=== PATIENT | female | born 1985 | race Caucasian/White ===

== ENCOUNTER 2016-12-19 12:58 | Emergency (ER) | payer OTHER ==
[~2016-12-19] VITALS: Ht 160 cm; Wt 60.9 kg
[~2016-12-19 12:58] MED LIST: AMOXICILLIN500 MG PO; ATIVAN0.5 MG PO; CIPROFLOXACN500 MG PO; FERR SULFATE325 MG PO; FIORICE1 PO; LEVOTHROID PO; LEVOTHYROXIN75 MCG PO; LORTAB 5/3255 MG PO; PHENERGAN25 MG RE; PRE-NATAL PO; PREVPAC OR; PROMETHAZINE25 MG OR; ULTRAM50 M1 PO; ZOFRAN ODT4 MG PO
[2016-12-19 14:20] LABS: ALBUMIN 3.9 g/dL (3.2-5.0); ALKALINE PHOSPHATASE 66 u/l (38-126); BILIRUBIN, TOTAL 0.5 mg/dL (0.0-1.4); BUN 11 mg/dL (7-17); BUN/CREATININE RATIO 13 (12-20 (CALC)); CALCIUM 9.5 mg/dL (8.4-10.2); CARBON DIOXIDE 29 mmol/l (22-30); CHLORIDE 100 mmol/l (95-108); CREATININE 0.9 mg/dL (0.5-1.0); GFR > 60 ML/MIN (>=60 (CALC)); GFR FOR AFR.AMER. > 60 ML/MIN (>=60 (CALC)); GLUCOSE 87 mg/dL (65-105); POTASSIUM 3.9 mmol/l (3.5-5.1); SGOT/AST 16 u/l (14-36); SGPT/ALT 23 u/l (9-52); TOTAL PROTEIN 7.2 g/dL (6.3-8.2)
[2016-12-19 14:22] LABS: ANION GAP 14 (6-22 (CALC)); HEMATOCRIT 35.4 % (37.0-47.0); HEMOGLOBIN 11.4 g/dl (12.0-16.0); IMMATURE GRANULOCYTES 0.3 % (0.0-1.0); MEAN CORPUSCULAR HGB CONC 32.2 g/L CALC (32.0-36.0); NEUT# 3.66 thou/uL (2.00-7.15); RED BLOOD COUNT 4.07 mill/uL (4.20-5.60); RED CELL DISTRI WIDTH 15.5 % (11.5-15.5); SODIUM 139 mmol/l (137-146)
[2016-12-19] MEDS ORDERED: MOTRIN800 MG PO (15:45)
[2016-12-19 15:54] VITALS: BP 109/64
== END 2016-12-19 15:54 | disposition home or self-care (01) | DRG 552 ==
LOC: ED 12:58
PROVIDERS: Emergency Medicine
DX: M54.5 Low back pain (principal); E03.9 Hypothyroidism, unspecified; S30.810A Abrasion of lower back and pelvis, initial encounter; X58.XXXA Exposure to other specified factors, initial encounter

== ENCOUNTER 2017-02-11 17:07 | Emergency (ER) | payer OTHER ==
[~2017-02-11] VITALS: Ht 160 cm; Wt 60.2 kg
[~2017-02-11 17:07] MED LIST changes: +MOTRIN800 MG PO
[2017-02-11] MEDS ORDERED: AMOXICILLIN500 MG PO (19:00)
[2017-02-11 20:45] VITALS: BP 107/74
== END 2017-02-11 20:48 | disposition home or self-care (01) | DRG 153 ==
LOC: ED 17:07
DX: J02.9 Acute pharyngitis, unspecified (principal)

== ENCOUNTER 2018-06-30 13:35 | Emergency (ER) | payer MEDICAID ==
[~2018-06-30] VITALS: Ht 160 cm; Wt 59.0 kg
[~2018-06-30 13:35] MED LIST changes: +FLEXERIL PO; +TORADOL PO
[2018-06-30 14:44] LABS: URINE BILIRUBIN - DIPSTICK NEGATIVE (NEGATIVE); URINE BLOOD DIPSTICK NEGATIVE (NEGATIVE); URINE COLOR YELLOW; URINE GLUCOSE - DIPSTICK NEGATIVE (NEGATIVE); URINE KETONE NEGATIVE (NEGATIVE); URINE LEUK ESTERASE NEGATIVE (NEGATIVE); URINE NITRITE - DIPSTICK NEGATIVE (Negative); URINE PROTEIN - DIPSTICK TRACE mg/dL (NEG-TRACE); URINE UROBILINOGEN - DIPSTICK 0.2 E.U./dL (0.2)
[2018-06-30 14:45] LABS: URINE CLARITY CLEAR
[2018-06-30 15:18] LABS: HEMOGLOBIN 13.9 g/dl (12.0-16.0); IMMATURE GRANULOCYTES 0.3 % (0.0-5.0); MEAN CELL VOLUME 91.2 fL CALC (80.0-100.0); MEAN CORPUSCULAR HGB 29.7 pG CALC (26.0-32.0); MEAN CORPUSCULAR HGB CONC 32.6 g/L CALC (32.0-36.0); NEUT# 3.51 thou/uL (2.00-7.15); RED BLOOD COUNT 4.68 mill/uL (4.20-5.60); RED CELL DISTRI WIDTH 14.7 % (11.5-15.5)
[2018-06-30 15:23] LABS: HEMATOCRIT 42.7 % (37.0-47.0)
[2018-06-30 15:31] LABS: ALBUMIN 3.9 g/dL (3.2-5.0); ALKALINE PHOSPHATASE 91 u/l (38-126); ANION GAP 12 (6-22 (CALC)); BILIRUBIN, TOTAL 0.9 mg/dL (0.0-1.4); BUN 8 mg/dL (7-17); BUN/CREATININE RATIO 10 (12-20 (CALC)); CARBON DIOXIDE 31 mmol/l (22-30); CHLORIDE 102 mmol/l (95-108); CREATININE 0.8 mg/dL (0.5-1.0); GFR > 60 ML/MIN (>=60 (CALC)); GFR FOR AFR.AMER. > 60 ML/MIN (>=60 (CALC)); LIPASE 118 u/l (23-300); POTASSIUM 4.4 mmol/l (3.5-5.1); SGOT/AST 18 u/l (14-36); SODIUM 140 mmol/l (137-146); TOTAL PROTEIN 7.2 g/dL (6.3-8.2)
[2018-06-30] MEDS ORDERED: PROTONIX40 M2 PO (15:42)
[2018-06-30 16:05] VITALS: BP 103/73
== END 2018-06-30 16:05 | disposition home or self-care (01) ==
LOC: ED 13:35
PROVIDERS: Emergency Medicine
DX: K59.00 Constipation, unspecified (principal); R10.13 Epigastric pain; Z90.49 Acquired absence of other specified parts of digestive tract; R19.7 Diarrhea, unspecified

== ENCOUNTER 2018-11-06 09:01 | Emergency (ER) | payer OTHER ==
[~2018-11-06] VITALS: Ht 160 cm; Wt 59.0 kg
[~2018-11-06 09:01] MED LIST changes: +PROTONIX40 M2 PO
[2018-11-06] MEDS ORDERED: PROVENTIL108 MCG/AC IN (09:49)
[2018-11-06] MEDS ORDERED: ZITHROMAX250 MG PO (09:49)
[2018-11-06] MEDS ORDERED: TORADOL PO (09:49)
[2018-11-06 10:12] VITALS: BP 104/67
== END 2018-11-06 10:15 | disposition home or self-care (01) ==
LOC: ED 09:01
DX: J02.0 Streptococcal pharyngitis (principal); R05 Cough

== ENCOUNTER 2018-11-24 08:51 | Emergency (ER) | payer OTHER ==
[~2018-11-24] VITALS: Ht 160 cm; Wt 59.6 kg
[~2018-11-24 08:51] MED LIST changes: +PROVENTIL108 MCG/AC IN; +ZITHROMAX250 MG PO
[2018-11-24 11:09] LABS: HEMATOCRIT 45.2 % (37.0-47.0); HEMOGLOBIN 14.8 g/dl (12.0-16.0); IMMATURE GRANULOCYTES 0.5 % (0.0-5.0); MEAN CELL VOLUME 91.1 fL CALC (80.0-100.0); MEAN CORPUSCULAR HGB 29.8 pG CALC (26.0-32.0); MEAN CORPUSCULAR HGB CONC 32.7 g/L CALC (32.0-36.0); NEUT# 7.41 thou/uL (2.00-7.15); RED BLOOD COUNT 4.96 mill/uL (4.20-5.60); RED CELL DISTRI WIDTH 14.8 % (11.5-15.5)
[2018-11-24 11:26] LABS: ALBUMIN 4.4 g/dL (3.2-5.0); ALKALINE PHOSPHATASE 123 u/l (38-126); ANION GAP 15 (6-22 (CALC)); BUN 7 mg/dL (7-17); BUN/CREATININE RATIO 9 (12-20 (CALC)); CARBON DIOXIDE 30 mmol/l (22-30); CHLORIDE 99 mmol/l (95-108); CREATININE 0.7 mg/dL (0.5-1.0); GFR > 60 ML/MIN (>=60 (CALC)); GFR FOR AFR.AMER. > 60 ML/MIN (>=60 (CALC)); POTASSIUM 4.3 mmol/l (3.5-5.1); SGOT/AST 18 u/l (14-36); SODIUM 139 mmol/l (137-146); TOTAL PROTEIN 7.7 g/dL (6.3-8.2)
[2018-11-24] MEDS ORDERED: TORADOL PO (12:53)
[2018-11-24] MEDS ORDERED: LEVAQUIN750 MG PO (12:53)
[2018-11-24] MEDS ORDERED: PROVENTIL108 MCG/AC IN (12:53)
[2018-11-24 13:00] VITALS: BP 121/67
== END 2018-11-24 13:00 | disposition home or self-care (01) ==
LOC: ED 08:51
PROVIDERS: Emergency Medicine
DX: J18.9 Pneumonia, unspecified organism (principal); R05 Cough; R09.81 Nasal congestion
CPT/HCPCS: Q9967

== ENCOUNTER 2019-08-17 14:50 | Emergency (ER) | payer SELFPAY ==
[~2019-08-17] VITALS: Ht 160 cm; Wt 58.6 kg
[~2019-08-17 14:50] MED LIST changes: +LEVAQUIN750 MG PO
[2019-08-17] MEDS ORDERED: TAM75CAP PO (17:04)
[2019-08-17 17:30] VITALS: BP 112/64
== END 2019-08-17 17:30 | disposition home or self-care (01) | DRG 866 ==
LOC: ED 14:50
DX: B34.9 Viral infection, unspecified (principal); Z20.828 Contact with and (suspected) exposure to other viral communicable diseases

== ENCOUNTER 2021-08-30 14:25 | Emergency (ER) | payer SELFPAY ==
[~2021-08-30] VITALS: Ht 160 cm; Wt 58.0 kg
[~2021-08-30 14:25] MED LIST changes: +TAM75CAP PO
[2021-08-30] MEDS ORDERED: SYNTHROID25 MCG PO (14:50)
[2021-08-30 16:49] LABS: HEMOGLOBIN 13.3 g/dl (12.0-16.0); IMMATURE GRANULOCYTES 0.2 % (0.0-5.0); MEAN CORPUSCULAR HGB 32.5 pG CALC (26.0-32.0); MEAN CORPUSCULAR HGB CONC 33.3 g/dL CAL (32.0-36.0); NEUT# 7.03 thou/uL (2.00-7.15); RED BLOOD COUNT 4.09 mill/uL (4.20-5.60); RED CELL DISTRI WIDTH 12.9 % (11.5-15.5)
[2021-08-30 16:51] LABS: MEAN CELL VOLUME 97.8 fL CALC (80.0-100.0)
[2021-08-30 17:08] LABS: ALBUMIN 3.6 g/dL (3.2-5.0); ALKALINE PHOSPHATASE 109 u/l (38-126); ANION GAP 10 (6-22 (CALC)); BUN 7 mg/dL (7-17); BUN/CREATININE RATIO 7 (12-20 (CALC)); CARBON DIOXIDE 28 mmol/l (22-30); CHLORIDE 102 mmol/l (95-108); CREATININE 0.9 mg/dL (0.5-1.0); GFR > 60 ML/MIN (>=60 (CALC)); GFR FOR AFR.AMER. > 60 ML/MIN (>=60 (CALC)); POTASSIUM 3.7 mmol/l (3.5-5.1); SGOT/AST 17 u/l (14-36); SODIUM 136 mmol/l (137-146); TOTAL PROTEIN 6.9 g/dL (6.3-8.2)
[2021-08-30 17:09] LABS: BILIRUBIN, TOTAL 0.5 mg/dL (0.0-1.4)
[2021-08-30] MEDS ORDERED: ZPAK PO (19:21)
[2021-08-30 20:16] VITALS: BP 95/56
== END 2021-08-30 20:15 | disposition home or self-care (01) | DRG 195 ==
LOC: ED 14:25
DX: J18.9 Pneumonia, unspecified organism (principal); Z20.822 Contact with and (suspected) exposure to COVID-19
CPT/HCPCS: Q9967

== ENCOUNTER 2021-09-04 16:57 | Emergency (ER) | payer SELFPAY ==
[~2021-09-04] VITALS: Ht 160 cm; Wt 68.0 kg
[~2021-09-04 16:57] MED LIST changes: +SYNTHROID25 MCG PO; +ZPAK PO
[2021-09-04 18:57] LABS: URINE BILIRUBIN - DIPSTICK NEGATIVE (NEGATIVE); URINE BLOOD DIPSTICK NEGATIVE (NEGATIVE); URINE COLOR YELLOW; URINE GLUCOSE - DIPSTICK NEGATIVE (NEGATIVE); URINE KETONE NEGATIVE (NEGATIVE); URINE LEUK ESTERASE NEGATIVE (NEGATIVE); URINE PROTEIN - DIPSTICK NEGATIVE (NEG-TRACE); URINE UROBILINOGEN - DIPSTICK 0.2 E.U./dL (0.2)
[2021-09-04 18:58] LABS: HEMATOCRIT 35.8 % (37.0-47.0); HEMOGLOBIN 11.8 g/dl (12.0-16.0); MEAN CELL VOLUME 99.4 fL CALC (80.0-100.0); MEAN CORPUSCULAR HGB 32.8 pG CALC (26.0-32.0); NEUT# 3.13 thou/uL (2.00-7.15); RED BLOOD COUNT 3.6 mill/uL (4.20-5.60); RED CELL DISTRI WIDTH 13.5 % (11.5-15.5)
[2021-09-04 18:59] LABS: URINE NITRITE - DIPSTICK NEGATIVE (Negative)
[2021-09-04 19:01] LABS: IMMATURE GRANULOCYTES 11.9 % (0.0-5.0)
[2021-09-04 19:17] LABS: ALKALINE PHOSPHATASE 97 u/l (38-126); ANION GAP 6 (6-22 (CALC)); BUN 8 mg/dL (7-17); BUN/CREATININE RATIO 12 (12-20 (CALC)); CARBON DIOXIDE 32 mmol/l (22-30); CHLORIDE 106 mmol/l (95-108); CREATININE 0.6 mg/dL (0.5-1.0); GFR > 60 ML/MIN (>=60 (CALC)); GFR FOR AFR.AMER. > 60 ML/MIN (>=60 (CALC)); POTASSIUM 3.6 mmol/l (3.5-5.1); SODIUM 140 mmol/l (137-146); TOTAL PROTEIN 5.8 g/dL (6.3-8.2)
[2021-09-04 19:18] LABS: ALBUMIN 2.7 g/dL (3.2-5.0); BILIRUBIN, TOTAL 0.2 mg/dL (0.0-1.4); SGOT/AST 33 u/l (14-36)
[2021-09-04] MEDS ORDERED: LEVAQUIN750 M1 PO (19:52)
[2021-09-04 20:30] VITALS: BP 103/84
== END 2021-09-04 20:30 | disposition home or self-care (01) | DRG 195 ==
LOC: ED 16:57
PROVIDERS: Emergency Medicine
DX: J18.9 Pneumonia, unspecified organism (principal); Z20.822 Contact with and (suspected) exposure to COVID-19